=== PATIENT | female | born 2000 | race Hispanic/Latino ===

== ENCOUNTER 2024-10-28 19:45 | Emergency (ER) | payer BC, MEDICAID ==
[~2024-10-28] VITALS: Ht 162.6 cm; Wt 86.2 kg
[2024-10-28 20:25] LABS: HCG,QUALITATIVE URINE NEGATIVE (NEGATIVE)
[2024-10-28 20:29] LABS: APPEARANCE,URINE CLEAR (CLEAR); BILIRUBIN,URINE NEGATIVE (NEGATIVE); COLOR,URINE LIGHT-YELLOW (YELLOW); GLUCOSE, URINE (UA) NEGATIVE (NEGATIVE); KETONES,URINE NEGATIVE (NEGATIVE); LEUKOCYTE ESTERASE ,URINE 25 Leu/uL (NEGATIVE); NITRATE,URINE NEGATIVE (NEGATIVE); OCCULT BLOOD,URINE NEGATIVE (NEGATIVE); PH,URINE 6.5 (5.0-8.0); PROTEIN,URINE NEGATIVE (NEGATIVE); UROBILINOGEN,URINE 0.2 mg/dL (0.2-1.0)
[2024-10-28 20:31] LABS: BACTERIA,URINE RARE /HPF (None Seen); MUCUS,URINE RARE LPF (None Seen); SQUAMOUS EPITHELIAL CELL,UR MOD /HPF (0-2)
[2024-10-28] MEDS ORDERED: CEPH500C2 PO (20:36)
--- NOTE | 2024-10-28 20:36 | ERN ---
General Chief Complaint: Urinary Frequency Stated Complaint: TROUBLE URINATING Time Seen by MD: 19:49 History of Present Illness Initial Comments 24-year-old female otherwise healthy presents for urgency and dysuria for about two weeks. Occasionally she has been having lower back pain. No fevers vomiting vaginal bleeding vaginal discharge or risk of STI. LMP was about a month ago. No medical or surgical history. She had a vaginal delivery six months ago without complications. Allergies: Coded Allergies: No Known Allergies (Unverified Allergy, Unknown, 10/28/24) Home Meds Active Scripts Cephalexin (Cephalexin) 500 Mg Capsule, 1 CAP PO TID for 5 Days, #10 CAP 0 Refills Prov:SAMEERA ACHARYA DO 10/28/24 Past Medical History Past Medical History: No Pertinent History Past Surgical History: None Female( History) LMP: Sep 23, 2024 ROS Dictation CONSTITUTIONAL: No chills, no fever, no weakness, no diaphoresis, no malaise. HEAD/FACE: No signs of trauma. EENT: No eye pain, no blurred vision, no tearing, no double vision, no ear pain, no ear discharge, no nose pain, no nasal congestion, no throat pain, no throat swelling, no mouth pain. RESPIRATORY: No cough, no orthopnea, no SOB, no stridor, no wheezing. CARDIOVASCULAR: No chest pain, no edema, no palpitations, no syncope. GASTROINTESTINAL/ABDOMINAL: No abdominal pain, no constipation, no diarrhea, no nausea, no vomiting. GENITOURINARY: Urgency and dysuria MUSCULOSKELETAL: No back pain, no gout, no joint pain, no joint swelling, no muscle pain, no muscle stiffness, no neck pain. INTEGUMENTARY: No change in color, no change in hair/nails, no dryness, no lesion, no lumps, no rash. NEUROLOGICAL/PSYCH: No anxiety, not depressed, no emotional problem, no headache, no numbness, no pre-existing deficit, no history of seizures, no tremors, no weakness. HEMATOLOGIC/LYMPHATIC: Not anemic, no history of blood clots, no apparent bleeding, no bruising, glands not swollen. All Systems Negative, Except as Noted. Physical Exam Physical Exam Dictation VITAL SIGNS: Reviewed. GENERAL APPEARANCE: Alert, oriented x3, no acute distress, obese. HEAD AND FACE: Non-traumatic. EYES: PERRL, pink conjunctivas, eyelid no trauma, anterior chamber clear. EARS: Pinnas intact and no signs of trauma or erythema. Ear canals clear and no discharge. TMs no erythema. NOSE: No discharge, no bleeding. OROPHARYNX: Mouth normal, teeth no caries, tongue pink. Pharynx clear, no erythema. Tonsils no exudates, no abscesses noted. Mucous membrane moist. NECK: Supple, non-tender, no thyromegaly, no masses, no JVD, no bruits. BREAST: Deferred. CHEST: No tenderness, no crepitus, no paradoxical movement, no retractions. LUNGS: Clear, well-ventilated, symmetric, no rales, no wheezing, no rhonchi, no stridor, good breath sounds bilaterally. HEART: Regular rate, regular rhythm, no murmur, no gallops. VASCULAR: No peripheral edema. ABDOMEN: Soft, positive bowel sounds, nondistended, no guarding, nontender, no rebound, no masses no hepatomegaly, no splenomegaly, no Traylor's sign, no hernias. RECTAL: Deferred. GENITAL: Deferred. NEUROLOGICAL: Normal speech, gross motor function intact, gross sensory function intact. MUSCULOSKELETAL: Neck nontender, full range of motion, back nontender, full range of motion. EXTREMITIES: Nontender, full range of motion. SKIN: Color pink, dry, no turgor, no rash, no lacerations, no abrasions, no contusions. LYMPHATICS: Deferred. Results Laboratory and Microbiology Lab and Micro Result Laboratory Tests Test 10/28/24 19:54 Urine Color LIGHT-YELLOW (YELLOW) Urine Appearance CLEAR (CLEAR) Urine pH 6.5 (5.0-8.0) Urine Specific [place] 1.027 (1.001-1.031) Urine Protein NEGATIVE mg/dL (NEGATIVE) Urine Glucose (UA) NEGATIVE mg/dL (NEGATIVE) Urine Ketones NEGATIVE mg/dL (NEGATIVE) Urine Occult Blood NEGATIVE (NEGATIVE) Urine Nitrate NEGATIVE (NEGATIVE) Urine Bilirubin NEGATIVE mg/dL (NEGATIVE) Urine Urobilinogen 0.2 mg/dL (0.2-1.0) Urine Leukocyte Esterase 25 Les/uL (NEGATIVE) H Urine RBC 2-5 /HPF (0-1) H Urine WBC 2-5 /HPF (0-1) H Urine Squamous Epithelial Cells MOD /HPF (0-2) Urine Bacteria RARE /HPF (None Seen) Urine HCG, Qualitative NEGATIVE (NEGATIVE) MDM CC: Urgency and dysuria Historian: Patient Comorbidities: Obesity Limitations by social determinants of health: None Differential diagnosis, UTI, pyelonephritis, STI, other. Urinalysis does show leuk esterase and some white blood cells consistent with UTI. This is consistent with her symptoms. There is no signs of SIRS or sepsis. The vital signs are stable. She is nontoxic in appearance. Given a dose of IM Rocephin here in the ER, we will discharge with cephalexin and recommend PCP follow up. ED Course Orders Procedure Category Date Status Time Urinalysis LAB 10/28/24 Complete W/Microscopic 19:57 ,Urine Test LAB 10/28/24 Complete 19:57 Ceftriaxone 1g Vial PHA 10/28/24 Complete (Rocephine 1g Inj) 21:00 Current Medications Medications (Trade) Dose Ordered Sig/Lupe Route PRN Reason Start Time Stop Time Status Last Admin Dose Admin Ceftriaxone Sodium (ROCEphine 1G INJ) 1 gm ONCE ONCE IM 10/28/24 21:00 10/28/24 20:42 DC Vital Signs Date Time Temp Pulse Resp B/P (MAP) Pulse Ox O2 Delivery O2 Flow Rate FiO2 10/28/24 20:40 98.2 90 18 131/83 98 Room Air* 0 21 10/28/24 19:48 99.3 96 18 137/84 98 Room Air DX & DISP Disposition: Discharge Departure Impression: Primary Impression: UTI (urinary tract infection) Condition: Stable Scripts Cephalexin (Cephalexin) 500 Mg Capsule 1 CAP PO TID for 5 Days, #10 CAP 0 Refills Prov: SAMEERA ACHARYA DO 10/28/24 Additional Instructions: You have a urinary tract infection based on your urinalysis. Your test was negative. You received a dose of antibiotics (Rocephin) here in the emergency department. I have prescribed cephalexin, which is an antibiotic. Please take the full course of antibiotics as prescribed. You can take [id number] Tylenol or ibuprofen as needed for pain. You can also try [id number] AZO for urinary discomfort. As we discussed, please follow up with your OBGYN physician for further treatment and evaluation next week. Return to the emergency department as needed. Referrals: SELF,REFERRAL (PCP) SAMEERA ACHARYA DO Oct 28, 2024 20:36
[2024-10-28 20:40] VITALS: BP 131/83; PULSE 90; RESP 18; TEMP 98.3; O2SAT 98
[2024-10-28] MEDS ORDERED: cefTRIAXone 1G VIAL IM ONE (21:00)
== END 2024-10-28 20:42 | disposition home or self-care (01) ==
LOC: EDH 19:45
DX: N39.0 Urinary tract infection, site not specified (principal); E66.9 Obesity, unspecified; Z79.899 Other long term (current) drug therapy
CPT/HCPCS: 81001; 81025; 99283

== ENCOUNTER 2024-11-15 09:15 | Emergency (ER) | payer BC, MEDICAID ==
[~2024-11-15] VITALS: Ht 162.6 cm; Wt 84.0 kg
[~2024-11-15 09:15] MED LIST: CEPH500C2 PO
--- NOTE | 2024-11-15 09:39 | ERN ---
ED Note History of Present Illness Stated Complaint: PELVIC PAIN Chief Complaint: Pelvic Pain Time Seen by MD: 09:17 Dictation: 24-year-old female presented to the ER complaining of left lower abdominal pain, left costovertebral angle pain, left groin pain. Also stated that she had been seen at this facility recently last month for similar pain, no imaging was performed the patient states. Also reports that pain sometimes get worse with intercourse. Allergies: Coded Allergies: No Known Allergies (Unverified Allergy, Unknown, 10/28/24) Home Meds Active Scripts Cephalexin (Cephalexin) 500 Mg Capsule, 1 CAP PO TID for 5 Days, #10 CAP 0 Refills Prov:SAMEERA ACHARYA DO 10/28/24 Past Medical History Past Medical History: No Pertinent History Additional Past Medical Hx: DENIES PMHX Surgical History: None LMP: Nov 08, 2024 Review of System Dictation NEGATIVE EXCEPT PER HPI Constitutional: Negative for fever,chills, and weight loss Eyes: Negative for injury, pain,redness, and discharge ENT: Negative for injury,pain or swelling Cardiovascular: denies chest pain, palpitations, and edema Respiratory: Negative for shortness of breath, cough, and wheezing, Abdomen/GI: Left lower abdominal pain. Denies nausea or vomiting. Back: Negative for injury and pain : Negative for injury, bleeding and discharge, left CVA pain MS/Extremity: Negative for injury and deformity Skin: Negative for rash, and discoloration Neuro: Negative for headache, weakness, numbness, tingling, and seizure Psych: Negative for suicide ideation, homicidal ideation, and hallucinations Initial Vital Sign VS Vital Signs Date Time Temp Pulse Resp B/P (MAP) Pulse Ox O2 Delivery O2 Flow Rate FiO2 11/15/24 09:17 97.7 82 16 123/84 100 Room Air 0 11/15/24 09:22 21 Physical Exam Dictation General: awake, alert, NAD Head/Face: Normocephalic, atraumatic Eyes: PERRL, EOMI, vision at baseline ENT: oral cavity clear, TMs clear, no signs of infection Neck: Trachea midline, supple, no nuchal rigidity Cardiovascular: RRR, normal S1/S2, No MRGs, no JVD Respiratory: CTAB, no respiratory distress, No rales or wheezes Abdomen: Soft , mild tender in the left lower abdomen Skin: Warm, dry, normal turgor, no rash MS/Extremity: Pulses equal, no cyanosis, neurovascular intact, FROM Neuro: COAx4, GCS 15, strength 5/5, CN 2-12 intact, normal cerebellar exam, normal gait, Psych: Normal behavior, mood, and affect normal Results (Laboratory/Radiology) Laboratory/Radiology Laboratory Tests Test 11/15/24 09:45 11/15/24 10:33 White Blood Count 5.8 K/uL (4.8-10.8) Red Blood Count 4.88 MIL/uL (4.00-5.50) Hemoglobin 14.0 g/dL (12.0-16.0) Hematocrit 42.1 % (36-48) Mean Corpuscular Volume 86.3 fL (79-99) Mean Corpuscular Hemoglobin 28.7 pg (27.0-33.0) Mean Corpuscular Hemoglobin Concent 33.3 g/dL (32.0-36.0) Red Cell Distribution Width 12.9 % (11.0-15.5) Platelet Count 288 K/uL (130-400) Mean Platelet Volume 9.7 fL (7.5-10.5) Immature Granulocyte % (Auto) 0.2 % (0-1) Neutrophils (%) (Auto) 56.9 % (40.0-77.0) Lymphocytes (%) (Auto) 32.6 % (21.0-51.0) Monocytes (%) (Auto) 7.5 % (3.0-13.0) Eosinophils (%) (Auto) 2.6 % (0.0-8.0) Basophils (%) (Auto) 0.2 % (0.0-5.0) Neutrophils # (Auto) 3.3 K/uL (1.8-7.7) Lymphocytes # (Auto) 1.9 K/uL (1.0-4.8) Monocytes # (Auto) 0.4 K/uL (0.1-1.0) Eosinophils # (Auto) 0.15 K/uL (0.00-0.70) Basophils # (Auto) 0.01 K/uL (0.00-0.20) Absolute Immature Granulocyte (auto 0.01 K/uL (0-1) Nucleated Red Blood Cells 0.0 % (0.0-0.19) Sodium Level 142 mmol/L (136-145) Potassium Level 4.1 mmol/L (3.5-5.1) Chloride Level 107 mmol/L (101-111) Carbon Dioxide Level 28 mmol/L (21-32) Blood Urea Nitrogen 16 mg/dL (7-18) Creatinine 0.4 mg/dL (0.5-1.0) L Glomerular Filtration Rate Calc 143 mL/min (>90) Random Glucose 96 mg/dL (70-105) Total Calcium 8.5 mg/dL (8.5-10.1) Serum Test, Qualitative NEGATIVE (NEGATIVE) Urine Color LIGHT-YELLOW (YELLOW) Urine Appearance CLEAR (CLEAR) Urine pH 6.0 (5.0-8.0) Urine Specific [place] 1.027 (1.001-1.031) Urine Protein NEGATIVE mg/dL (NEGATIVE) Urine Glucose (UA) NEGATIVE mg/dL (NEGATIVE) Urine Ketones NEGATIVE mg/dL (NEGATIVE) Urine Occult Blood NEGATIVE (NEGATIVE) Urine Nitrate NEGATIVE (NEGATIVE) Urine Bilirubin NEGATIVE mg/dL (NEGATIVE) Urine Urobilinogen 0.2 mg/dL (0.2-1.0) Urine Leukocyte Esterase NEGATIVE Les/uL ED Course ED Course Orders Procedure Category Date Status Time Testing, LAB 11/15/24 Complete Serum Hcg 09:31 Cbc With Differential LAB 11/15/24 Complete 09: Basic Metabolic Panel LAB 11/15/24 Complete 09:31 Urinalysis Profile LAB 11/15/24 Complete 09:31 Ct Abdomen/Pelvis W/O CT 11/15/24 Resulted Contrast 09:39 Lactulose 20 Gm/30 Ml PHA 11/15/24 In Process Udcup (Constulose 11:30 Current Medications Medications (Trade) Dose Ordered Sig/Lupe Route PRN Reason Start Time Stop Time Status Last Admin Dose Admin Lactulose (Constulose 20gm/ 30ml Udcup) 20 gm ONCE ONCE PO 11/15/24 11:30 11/15/24 11:31 Vital Signs Date Time Temp Pulse Resp B/P (MAP) Pulse Ox O2 Delivery O2 Flow Rate FiO2 11/15/24 11:11 98.1 68 16 114/62 98 Room Air* 0 21 11/15/24 09:22 97.7 82 16 123/84 100 Room Air* 0 21 11/15/24 09:17 97.7 82 16 123/84 100 Room Air 0 Medical Decision Making MDM 24-year-old female presented with abdominal pain, pain localized in the left lower abdomen. Pain in the left CVA angle. MDM: UTI Diverticulitis Ordered: CBC, BNP, UA, test CT imaging abdomen and pelvis without contrast. Imagings was positive only for constipation. Laboratory was within normal limits Patient received 1 dose of lactulose and bowel regimen medication will be sent for her pharmacy of choice. Patient must follow up with her PCP. She was was encouraged to drink at least 3 L of water daily to keep hydrated. DX & DISP Disposition: Discharge Departure Impression: Primary Impression: Constipation Additional Impression: Abdominal pain Condition: Stable Scripts Polyethylene Glycol 3350 (Miralax) 17 Gram Powd.pack 1 PACKET PO DAILY for constipation, #30 PACKET 0 Refills dissolve in water Prov: LOKESH LEE MD 11/15/24 Bisacodyl (Dulcolax) 10 Mg Supp.rect [address] DAILY for constipation for 10 Days, #10 SUPP 0 Refills Prov: LOKESH LEE MD 11/15/24 Docusate Sodium (Colace) 100 Mg Capsule 1 CAP PO BID for 30 Days, #60 CAP 0 Refills Prov: LOKESH LEE MD 11/15/24 Additional Instructions: RETURN TO ER FOR ANY ACUTE OR WORSENING SYMPTOMS. FOLLOW-UP IN 1-2 DAYS WITH PRIMARY PROVIDER FOR RECHECK OF TODAY'S SYMPTOMS. Referrals: SELF,REFERRAL (PCP) Time of Disposition: 11:34 LOKESH LEE MD Nov 15, 2024 09:39
[2024-11-15 09:58] LABS: BASOPHILS # (AUTO) 0.01 K/uL (0.00-0.20); BASOPHILS % (AUTO) 0.2 % (0.0-5.0); EOSINOPHILS # (AUTO) 0.15 K/uL (0.00-0.70); EOSINOPHILS % (AUTO) 2.6 % (0.0-8.0); HEMATOCRIT 42.1 % (36-48); IMMATURE GRANULOCYTE ABSOLUTE 0.01 K/uL (0-1); LYMPHOCYTES # (AUTO) 1.9 K/uL (1.0-4.8); LYMPHOCYTES % (AUTO) 32.6 % (21.0-51.0); MEAN CORPUSCULAR HEMOGLOBIN 28.7 pg (27.0-33.0); MEAN CORPUSCULAR HGB CONC 33.3 g/dL (32.0-36.0); MEAN CORPUSCULAR VOLUME 86.3 fL (79-99); MONOCYTES # (AUTO) 0.4 K/uL (0.1-1.0); MONOCYTES % (AUTO) 7.5 % (3.0-13.0); NEUTROPHILS # (AUTO) 3.3 K/uL (1.8-7.7); NEUTROPHILS % (AUTO) 56.9 % (40.0-77.0); PLATELET COUNT (AUTO) 288 K/uL (130-400); RED BLOOD CELL COUNT(AUTO) 4.88 MIL/uL (4.00-5.50); RED CELL DISTRIBUTION WIDTH 12.9 % (11.0-15.5); WHITE BLOOD COUNT (AUTO) 5.8 K/uL (4.8-10.8)
[2024-11-15 10:03] LABS: CREATININE 0.4 mg/dL (0.5-1.0); POTASSIUM 4.1 mmol/L (3.5-5.1)
[2024-11-15 10:51] LABS: APPEARANCE,URINE CLEAR (CLEAR); BILIRUBIN,URINE NEGATIVE (NEGATIVE); COLOR,URINE LIGHT-YELLOW (YELLOW); GLUCOSE, URINE (UA) NEGATIVE (NEGATIVE); KETONES,URINE NEGATIVE (NEGATIVE); LEUKOCYTE ESTERASE ,URINE NEGATIVE Leu/uL (NEGATIVE); NITRATE,URINE NEGATIVE (NEGATIVE); OCCULT BLOOD,URINE NEGATIVE (NEGATIVE); PROTEIN,URINE NEGATIVE (NEGATIVE); UROBILINOGEN,URINE 0.2 mg/dL (0.2-1.0)
[2024-11-15 10:52] LABS: ADD UA MICROSCOPIC NO
--- NOTE | 2024-11-15 11:21 | HMCIMG ---
CT ABDOMEN/PELVIS W/O CONTRAST CLINICAL HISTORY: left lower abd pain , left cva pain COMPARISON: None TECHNIQUE: Sequential axial images of abdomen and pelvis without contrast and with sagittal and coronal reconstructions. CT was performed with one or more of the following dose reduction techniques: automated exposure control, adjustment of the mA and/or kV according to patient size, or use of iterative reconstruction technique FINDINGS: Lung bases are clear. Liver and spleen are unremarkable. The gallbladder pancreas and adrenal glands are unremarkable. The right kidney and bladder are unremarkable. There is a punctate nonobstructive left renal calculus. There is no free air or free fluid. This amount of fecal material in the colon with no identified bowel obstruction. The appendix is unremarkable. Uterus appears within normal limits. The bony structures are unremarkable. IMPRESSION: Constipation. Punctate nonobstructive left renal calculus.
[2024-11-15] MEDS ORDERED: BISA10SU61 PR (11:33)
[2024-11-15] MEDS ORDERED: POLY17PO4 PO (11:33)
[2024-11-15] MEDS ORDERED: DOCU-116 PO (11:33)
[2024-11-15] MEDS: LACTULOSE 20 GM/30 ML UDCUP PO ONE (11:35)
[2024-11-15 12:13] VITALS: BP 108/64; PULSE 72; RESP 16; TEMP 98.1; O2SAT 98
== END 2024-11-15 12:15 | disposition home or self-care (01) ==
LOC: EDH 09:15
DX: K59.00 Constipation, unspecified (principal); R10.32 Left lower quadrant pain
CPT/HCPCS: 36415; 74176; 80048; 81003; 84703; 85025; 99284

== ENCOUNTER 2024-12-21 08:28 | Emergency (ER) | payer BC, MEDICAID ==
[~2024-12-21] VITALS: Ht 162.6 cm; Wt 90.7 kg
[~2024-12-21 08:28] MED LIST changes: +BISA10SU61 PR; +DOCU-116 PO; +POLY17PO4 PO
--- NOTE | 2024-12-21 09:00 | NUR ---
ADVISED OF URINE SPECIMEN FOR UA. STATES "I CANT RIGHT NOW BECAUSE I NEED FLUIDS."
[2024-12-21] MEDS: MAGNESIUM CITRATE 296 ML SOLUTION PO ONE (09:02)
[2024-12-21] MEDS: LACTULOSE 20 GM/30 ML UDCUP PO ONE (09:02)
[2024-12-21 09:37] LABS: BASOPHILS # (AUTO) 0.01 K/uL (0.00-0.20); BASOPHILS % (AUTO) 0.1 % (0.0-5.0); EOSINOPHILS # (AUTO) 0.15 K/uL (0.00-0.70); EOSINOPHILS % (AUTO) 1.9 % (0.0-8.0); HEMATOCRIT 41.1 % (36-48); IMMATURE GRANULOCYTE ABSOLUTE 0.02 K/uL (0-1); LYMPHOCYTES % (AUTO) 24.3 % (21.0-51.0); MEAN CORPUSCULAR HEMOGLOBIN 29.3 pg (27.0-33.0); MEAN CORPUSCULAR HGB CONC 33.8 g/dL (32.0-36.0); MEAN CORPUSCULAR VOLUME 86.7 fL (79-99); MONOCYTES # (AUTO) 0.5 K/uL (0.1-1.0); MONOCYTES % (AUTO) 5.7 % (3.0-13.0); NEUTROPHILS # (AUTO) 5.4 K/uL (1.8-7.7); NEUTROPHILS % (AUTO) 67.8 % (40.0-77.0); PLATELET COUNT (AUTO) 246 K/uL (130-400); RED BLOOD CELL COUNT(AUTO) 4.74 MIL/uL (4.00-5.50)
--- NOTE | 2024-12-21 09:37 | NUR ---
PATIENT TOILETED. STATES HAD X1 SMALL BM.
[2024-12-21 09:43] LABS: CREATININE 0.5 mg/dL (0.5-1.0); POTASSIUM 3.5 mmol/L (3.5-5.1)
[2024-12-21 09:51] LABS: HCG,QUALITATIVE URINE NEGATIVE (NEGATIVE)
[2024-12-21 10:08] LABS: BACTERIA,URINE MOD /HPF (None Seen); BILIRUBIN,URINE NEGATIVE (NEGATIVE); COLOR,URINE LIGHT-YELLOW (YELLOW); GLUCOSE, URINE (UA) NEGATIVE (NEGATIVE); KETONES,URINE NEGATIVE (NEGATIVE); LEUKOCYTE ESTERASE ,URINE NEGATIVE Leu/uL (NEGATIVE); MUCUS,URINE RARE LPF (None Seen); NITRATE,URINE NEGATIVE (NEGATIVE); OCCULT BLOOD,URINE NEGATIVE (NEGATIVE); PH,URINE 6.5 (5.0-8.0); PROTEIN,URINE NEGATIVE (NEGATIVE); SQUAMOUS EPITHELIAL CELL,UR FEW /HPF (0-2); UROBILINOGEN,URINE 0.2 mg/dL (0.2-1.0); WBC,URINE 0-1 /HPF (0-1)
[2024-12-21 10:10] LABS: APPEARANCE,URINE HAZY (CLEAR)
[2024-12-21] MEDS ORDERED: LACT10SO85 PO (10:51)
--- NOTE | 2024-12-21 10:51 | ERN ---
General Chief Complaint: Abdominal Pain Stated Complaint: ABD PAIN Time Seen by MD: 08:31 Source: patient History of Present Illness Initial Comments PATIENT IS A 24-YEAR-OLD FEMALE COMING IN TO BE EVALUATED FOR LOWER ABDOMINAL DISCOMFORT. PATIENT STATES THAT THIS IS THE 3RD VISIT SHE WAS SEEN BEFORE PRESCRIBED MEDICATION FOR CONSTIPATION BUT STATES HE HAS NOT DONE IT. SHE HAS NOT FOLLOWED UP WITH THE PCP AND STATES HE IS PENDING FOR INSURANCE TO KICK IN. Allergies: Coded Allergies: No Known Allergies (Unverified Allergy, Unknown, 10/28/24) Home Meds Active Scripts Polyethylene Glycol 3350 (Miralax) 17 Gram Powd.pack, 1 PACKET PO DAILY for constipation, #30 PACKET 0 Refills dissolve in water Prov:LOKESH LEE MD 11/15/24 Bisacodyl (Dulcolax) 10 Mg Supp.rect, 1 SUPP [place] DAILY for constipation for 10 Days, #10 SUPP 0 Refills Prov:LOKESH LEE MD 11/15/24 Docusate Sodium (Colace) 100 Mg Capsule, 1 CAP PO BID for 30 Days, #60 CAP 0 Refills Prov:LOKESH LEE MD 11/15/24 Cephalexin (Cephalexin) 500 Mg Capsule, 1 CAP PO TID for 5 Days, #10 CAP 0 Refills Prov:SAMEERA ACHARYA DO 10/28/24 Past Medical History Past Medical History: Constipation Medical History Other: DENIES PMHX Past Surgical History: Other Surgical History Other: CLEFT LIP REPAIR Female( History) LMP: Dec 06, 2024 : 6 Para: 2 Aborts: 4 ROS Dictation CONSTITUTIONAL: NO CHILLS, NO FEVER, NO WEAKNESS, NO DIAPHORESIS, NO MALAISE. HEAD/FACE: NO SIGNS OF TRAUMA. EENT: NO EYE PAIN, NO BLURRED VISION, NO TEARING, NO DOUBLE VISION, NO EAR PAIN, NO EAR DISCHARGE, NO NOSE PAIN, NO NASAL CONGESTION, NO THROAT PAIN, NO THROAT SWELLING, NO MOUTH PAIN. RESPIRATORY: NO COUGH, NO ORTHOPNEA, NO SOB, NO STRIDOR, NO WHEEZING. CARDIOVASCULAR: NO CHEST PAIN, NO EDEMA, NO PALPITATIONS, NO SYNCOPE. GASTROINTESTINAL/ABDOMINAL: ABDOMINAL PAIN, NO CONSTIPATION, NO DIARRHEA, NO NAUSEA, NO VOMITING. GENITOURINARY: NO ABNORMAL DISCHARGE, NO DYSURIA, NO FREQUENT URINATION, NO HEMATURIA. NO COMPLAINTS OF PAIN IN THE GENITALS. MUSCULOSKELETAL: NO BACK PAIN, NO GOUT, NO JOINT PAIN, NO JOINT SWELLING, NO MUSCLE PAIN, NO MUSCLE STIFFNESS, NO NECK PAIN. INTEGUMENTARY: NO CHANGE IN COLOR, NO CHANGE IN HAIR/NAILS, NO DRYNESS, NO LESION, NO LUMPS, NO RASH. NEUROLOGICAL/PSYCH: NO ANXIETY, NOT DEPRESSED, NO EMOTIONAL PROBLEM, NO HEADACHE, NO NUMBNESS, NO PRE-EXISTING DEFICIT, NO HISTORY OF SEIZURES, NO TREMORS, NO WEAKNESS. HEMATOLOGIC/LYMPHATIC: NOT ANEMIC, NO HISTORY OF BLOOD CLOTS, NO APPARENT BLEEDING, NO BRUISING, GLANDS NOT SWOLLEN. ALL SYSTEMS NEGATIVE, EXCEPT NOTED. Physical Exam Physical Exam Dictation VITAL SIGNS: REVIEWED. GENERAL APPEARANCE: ALERT, ORIENTED X3, NO ACUTE DISTRESS, OBESE. HEAD AND FACE: NON-TRAUMATIC. EYES: PERRL, PINK CONJUNCTIVAS, EYELID NO TRAUMA, ANTERIOR CHAMBER CLEAR. EARS: PINNAS INTACT AND NO SIGNS OF TRAUMA OR ERYTHEMA. EAR CANALS CLEAR AND NO DISCHARGE. TMS NO ERYTHEMA. NOSE: NO DISCHARGE, NO BLEEDING. OROPHARYNX: MOUTH NORMAL, TEETH NO CARIES, TONGUE PINK. PHARYNX CLEAR, NO ERYTHEMA. TONSILS NO EXUDATES, NO ABSCESSES NOTED. MUCOUS MEMBRANE MOIST. NECK: SUPPLE, NON-TENDER, NO THYROMEGALY, NO MASSES, NO JVD, NO BRUITS. BREAST: DEFERRED. CHEST: NO TENDERNESS, NO CREPITUS, NO PARADOXICAL MOVEMENT, NO RETRACTIONS. LUNGS: CLEAR, WELL-VENTILATED, SYMMETRIC, NO RALES, NO WHEEZING, NO RHONCHI, NO STRIDOR, GOOD BREATH SOUNDS BILATERALLY. HEART: REGULAR RATE, REGULAR RHYTHM, NO MURMUR, NO GALLOPS. VASCULAR: NO PERIPHERAL EDEMA. ABDOMEN: SOFT, POSITIVE BOWEL SOUNDS, NONDISTENDED, NO GUARDING, LOWER ABDOMINAL TENDER, NO REBOUND, NO MASSES NO HEPATOMEGALY, NO SPLENOMEGALY, NO POMPA'S SIGN, NO HERNIAS. RECTAL: DEFERRED. GENITAL: DEFERRED. NEUROLOGICAL: NORMAL SPEECH, GROSS MOTOR FUNCTION INTACT, GROSS SENSORY FUNCTION INTACT. MUSCULOSKELETAL: NECK NONTENDER, FULL RANGE OF MOTION, BACK NONTENDER, FULL RANGE OF MOTION. EXTREMITIES: NONTENDER, FULL RANGE OF MOTION. SKIN: COLOR PINK, DRY, NO TURGOR, NO RASH, NO LACERATIONS, NO ABRASIONS, NO CONTUSIONS. LYMPHATICS: DEFERRED. Results Laboratory and Microbiology Lab and Micro Result Laboratory Tests Test 12/21/24 09:31 12/21/24 09:35 White Blood Count 8.0 K/uL (4.8-10.8) Red Blood Count 4.74 MIL/uL (4.00-5.50) Hemoglobin 13.9 g/dL (12.0-16.0) Hematocrit 41.1 % (36-48) Mean Corpuscular Volume 86.7 fL (79-99) Mean Corpuscular Hemoglobin 29.3 pg (27.0-33.0) Mean Corpuscular Hemoglobin Concent 33.8 g/dL (32.0-36.0) Red Cell Distribution Width 13.0 % (11.0-15.5) Platelet Count 246 K/uL (130-400) Mean Platelet Volume 9.4 fL (7.5-10.5) Immature Granulocyte % (Auto) 0.2 % (0-1) Neutrophils (%) (Auto) 67.8 % (40.0-77.0) Lymphocytes (%) (Auto) 24.3 % (21.0-51.0) Monocytes (%) (Auto) 5.7 % (3.0-13.0) Eosinophils (%) (Auto) 1.9 % (0.0-8.0) Basophils (%) (Auto) 0.1 % (0.0-5.0) Neutrophils # (Auto) 5.4 K/uL (1.8-7.7) Lymphocytes # (Auto) 2.0 K/uL (1.0-4.8) Monocytes # (Auto) 0.5 K/uL (0.1-1.0) Eosinophils # (Auto) 0.15 K/uL (0.00-0.70) Basophils # (Auto) 0.01 K/uL (0.00-0.20) Absolute Immature Granulocyte (auto 0.02 K/uL (0-1) Nucleated Red Blood Cells 0.0 % (0.0-0.19) Sodium Level 137 mmol/L (136-145) Potassium Level 3.5 mmol/L (3.5-5.1) Chloride Level 101 mmol/L (101-111) Carbon Dioxide Level 30 mmol/L (21-32) Blood Urea Nitrogen 14 mg/dL (7-18) Creatinine 0.5 mg/dL (0.5-1.0) Glomerular Filtration Rate Calc 136 mL/min (>90) Random Glucose 102 mg/dL (70-105) Total Calcium 8.7 mg/dL (8.5-10.1) Urine Color LIGHT-YELLOW (YELLOW) Urine Appearance HAZY (CLEAR) Urine pH 6.5 (5.0-8.0) Urine Specific [place] 1.019 (1.001-1.031) Urine Protein NEGATIVE mg/dL (NEGATIVE) Urine Glucose (UA) NEGATIVE mg/dL (NEGATIVE) Urine Ketones NEGATIVE mg/dL (NEGATIVE) Urine Occult Blood NEGATIVE (NEGATIVE) Urine Nitrate NEGATIVE (NEGATIVE) Urine Bilirubin NEGATIVE mg/dL (NEGATIVE) Urine Urobilinogen 0.2 mg/dL (0.2-1.0) Urine Leukocyte Esterase NEGATIVE Les/uL Urine RBC None /HPF (0-1) Urine WBC 0-1 /HPF (0-1) Urine Squamous Epithelial Cells FEW /HPF (0-2) Urine Amorphous Crystals (Auto) FEW /LPF (None Seen) Urine Bacteria MOD /HPF (None Seen) Urine HCG, Qualitative NEGATIVE (NEGATIVE) MDM MDM: DIFFERENTIAL DIAGNOSIS: CONSTIPATION, ABDOMINAL PAIN, UTI PATIENT IS A 24-YEAR-OLD FEMALE COMING IN TO BE EVALUATED FOR LOWER ABDOMINAL PAIN. PER PATIENT SHE WAS DIAGNOSED WITH CONSTIPATION BUT STATES HE HAS NOT TAKEN HIS ENEMAS AND SUBSIDED. PATIENT DID RECEIVED LACTULOSE AND MAG CITRATE STATES HE WENT TO THE RESTROOM WERE PAIN IMPROVED SIGNIFICANTLY PATIENT WILL BE DISCHARGED IN STABLE CONDITION WITH A DIAGNOSIS OF CONSTIPATION ED Course Orders Procedure Category Date Status Time Cbc With Differential LAB 12/21/24 Complete 08:34 Urinalysis LAB 12/21/24 Complete W/Microscopic 08:34 ,Urine Test LAB 12/21/24 Complete 08:34 Basic Metabolic Panel LAB 12/21/24 Complete 08:34 Magnesium Citrate PHA 12/21/24 Complete (Magnesium Citrate) 09:00 Lactulose 20 Gm/30 Ml PHA 12/21/24 Complete Udcup (Constulose 09:00 Current Medications Medications (Trade) Dose Ordered Sig/Lupe Route PRN Reason Start Time Stop Time Status Last Admin Dose Admin Lactulose (Constulose 20gm/ 30ml Udcup) 20 gm ONCE ONCE PO 12/21/24 09:00 12/21/24 09:01 DC 12/21/24 09:02 Magnesium Citrate (Magnesium Citrate) 296 ml ONCE ONCE PO 12/21/24 09:00 12/21/24 09:01 DC 12/21/24 09:02 Vital Signs Date Time Temp Pulse Resp B/P (MAP) Pulse Ox O2 Delivery O2 Flow Rate FiO2 12/21/24 09:10 97.9 81 16 130/81 98 Room Air* 0 21 12/21/24 08:30 97.9 90 18 135/109 98 0 DX & DISP Disposition: Discharge Departure Impression: Primary Impression: Constipation Condition: Stable Scripts Lactulose (Lactulose) 10 Gram/15 Ml Solution 30 ML PO BID for constipation, #500 ML 0 Refills Prov: ANA RODRIGUEZ MD 12/21/24 Additional Instructions: FOLLOW-UP WITH PRIMARY CARE PROVIDER IN 1 TO 2 DAYS. TAKE MEDICATIONS DIREC RAFIA HERE IN THE EMERGENCY ROOM. OKAY TO CONTINUE HOME MEDICATIONS UNLESS OTHERWISE DISCUSSED DURING YOUR VISIT IN THE EMERGENCY ROOM TODAY. RETURN TO YOUR NEAREST EMERGENCY ROOM IF SYMPTOMS WORSEN OR IF THERE IS NO IMPROVEMENT. CALL 911 IF YOU NEED IMMEDIATE ASSISTANCE. TAKE TYLENOL [id number] NEEDED AND IF NO CONTRAINDICATIONS ARE PRESENT. INCREASE ORAL HYDRATION. A WOUND CULTURE OR URINE CULTURE WAS ORDERED HERE IN THE EMERGENCY ROOM DEPARTMENT PLEASE FOLLOW-UP WITH PRIMARY CARE PROVIDER AND ADVISE THEM TO GET REPEAT PORTS FROM OUR FACILITY. IF YOU HAD ANY LUIS ANTONIO WRAP/SPLINTS THAT WERE APPLIED HERE, PLEASE DO NOT REMOVE THEM UNTIL YOU SEE YOUR PRIMARY CARE OR SPECIALTY. REFERRALS: Referrals: NONE (PCP) MARY DELGADO MD Time of Disposition: 10:50 ANA RODRIGUEZ MD Dec 21, 2024 10:51
[2024-12-21 11:03] VITALS: BP 126/77; PULSE 77; RESP 14; TEMP 97.9; O2SAT 99
--- NOTE | 2024-12-21 11:03 | NUR ---
PATIENT STATES HAD ANOTHER BM
== END 2024-12-21 11:06 | disposition home or self-care (01) ==
LOC: EDH 08:28
DX: K59.00 Constipation, unspecified (principal); Z98.890 Other specified postprocedural states
CPT/HCPCS: 36415; 80048; 81001; 81025; 85025; 99283

== ENCOUNTER 2024-12-26 09:08 | Emergency (ER) | payer BC, MEDICAID ==
[~2024-12-26] VITALS: Ht 162.6 cm; Wt 90.7 kg
[~2024-12-26 09:08] MED LIST changes: +LACT10SO85 PO
[2024-12-26] MEDS ORDERED: PRED20TA3 PO (09:22)
--- NOTE | 2024-12-26 09:23 | ERN ---
General Chief Complaint: Allergic Reaction Stated Complaint: HIVES Time Seen by MD: 09:14 History of Present Illness Initial Comments 24-year-old female, otherwise healthy, who presents for generalized body rash and itching. She reports she had some itching last night. She woke up this morning she has a few spots of hives on her chest and lower back. No airway compromise. No shortness of breath. She was unsure what the allergy in his but she thinks it may be a dog. Allergies: Coded Allergies: No Known Allergies (Unverified Allergy, Unknown, 10/28/24) Home Meds Active Scripts Lactulose (Lactulose) 10 Gram/15 Ml Solution, 30 ML PO BID for constipation, #500 ML 0 Refills Prov:ANA RODRIGUEZ MD 12/21/24 Polyethylene Glycol 3350 (Miralax) 17 Gram Powd.pack, 1 PACKET PO DAILY for constipation, #30 PACKET 0 Refills dissolve in water Prov:LOKESH LEE MD 11/15/24 Bisacodyl (Dulcolax) 10 Mg Supp.rect, 1 SUPP AR DAILY for constipation for 10 Days, #10 SUPP 0 Refills Prov:LOKESH LEE MD 11/15/24 Docusate Sodium (Colace) 100 Mg Capsule, 1 CAP PO BID for 30 Days, #60 CAP 0 Refills Prov:LOKESH LEE MD 11/15/24 Cephalexin (Cephalexin) 500 Mg Capsule, 1 CAP PO TID for 5 Days, #10 CAP 0 Refills Prov:SAMEERA ACHARYA DO 10/28/24 Past Medical History Past Medical History: No Pertinent History Medical History Other: DENIES PMHX Past Surgical History: None Surgical History Other: CLEFT LIP REPAIR Female( History) LMP: Dec 06, 2024 : 5 Para: 2 Aborts: 3 ROS Dictation CONSTITUTIONAL: No chills, no fever, no weakness, no diaphoresis, no malaise. HEAD/FACE: No signs of trauma. EENT: No eye pain, no blurred vision, no tearing, no double vision, no ear pain, no ear discharge, no nose pain, no nasal congestion, no throat pain, no throat swelling, no mouth pain. RESPIRATORY: No cough, no orthopnea, no SOB, no stridor, no wheezing. CARDIOVASCULAR: No chest pain, no edema, no palpitations, no syncope. GASTROINTESTINAL/ABDOMINAL: No abdominal pain, no constipation, no diarrhea, no nausea, no vomiting. GENITOURINARY: No abnormal discharge, no dysuria, no frequent urination, no hematuria. No complaints of pain in the genitals. MUSCULOSKELETAL: No back pain, no gout, no joint pain, no joint swelling, no muscle pain, no muscle stiffness, no neck pain. INTEGUMENTARY: Rash itching NEUROLOGICAL/PSYCH: No anxiety, not depressed, no emotional problem, no headache, no numbness, no pre-existing deficit, no history of seizures, no tremors, no weakness. HEMATOLOGIC/LYMPHATIC: Not anemic, no history of blood clots, no apparent bleeding, no bruising, glands not swollen. All Systems Negative, Except as Noted. Physical Exam Physical Exam Dictation VITAL SIGNS: Reviewed. GENERAL APPEARANCE: Alert, oriented x3, no acute distress, obese. HEAD AND FACE: Non-traumatic. EYES: PERRL, pink conjunctivas, eyelid no trauma, anterior chamber clear. EARS: Pinnas intact and no signs of trauma or erythema. Ear canals clear and no discharge. TMs no erythema. NOSE: No discharge, no bleeding. OROPHARYNX: Mouth normal, teeth no caries, tongue pink. Pharynx clear, no erythema. Tonsils no exudates, no abscesses noted. Mucous membrane moist. NECK: Supple, non-tender, no thyromegaly, no masses, no JVD, no bruits. BREAST: Deferred. CHEST: No tenderness, no crepitus, no paradoxical movement, no retractions. LUNGS: Clear, well-ventilated, symmetric, no rales, no wheezing, no rhonchi, no stridor, good breath sounds bilaterally. HEART: Regular rate, regular rhythm, no murmur, no gallops. VASCULAR: No peripheral edema. ABDOMEN: Soft, positive bowel sounds, nondistended, no guarding, nontender, no rebound, no masses no hepatomegaly, no splenomegaly, no Traylor's sign, no hernias. RECTAL: Deferred. GENITAL: Deferred. NEUROLOGICAL: Normal speech, gross motor function intact, gross sensory function intact. MUSCULOSKELETAL: Neck nontender, full range of motion, back nontender, full range of motion. EXTREMITIES: Nontender, full range of motion. SKIN: Mild hives LYMPHATICS: Deferred. MDM CC: Body itching allergic type symptoms Historian: Patient Comorbidities: None Limitations by social determinants of health: None Differential diagnosis: Hives, body rash, allergic reaction. No signs of liver failure. No signs of anaphylaxis. Vital signs are stable Patient appears to have an allergy based on clinical exam. No indication for labs or studies. Treatment in ED: IM Solu-Medrol Plan: We will DC with a prescription for prednisone, recommend [id number] Zyrtec and PCP follow up. ED Course Vital Signs Date Time Temp Pulse Resp B/P (MAP) Pulse Ox O2 Delivery O2 Flow Rate FiO2 12/26/24 09:10 97.9 89 18 127/83 100 Room Air 0 DX & DISP Disposition: Discharge Departure Impression: Primary Impression: Allergic reaction Condition: Stable Scripts Prednisone (Prednisone) 20 Mg Tablet 1 TAB PO BID for 5 Days, #10 TAB 0 Refills Prov: SAMEERA ACHARYA DO 12/26/24 Additional Instructions: Your symptoms are consistent with the an allergic reaction. You received IM steroids here in the ER. This will reduce inflammation. I have prescribed prednisone, which is an anti-inflammatory steroid. You can take this twice per day for the next 3-5 days as needed. I recommend that you take an antihistamine such as Zyrtec. Take one tab daily. This medication is [id number]. Return to the emergency department if you have any airway swelling, difficulty breathing, or any other concerning symptom. Otherwise, you can follow up with an outpatient. There is an manager php here in [place] named Dr. Castañeda. Referrals: SELF,REFERRAL (PCP) SAMEERA ACHARYA DO Dec 26, 2024 09:23
[2024-12-26] MEDS: Solu-medROL 40MG VIAL IM ONE (09:53)
[2024-12-26 10:06] VITALS: BP 121/73; PULSE 75; RESP 18; TEMP 97.9; O2SAT 98
== END 2024-12-26 10:15 | disposition home or self-care (01) ==
LOC: EDH 09:08
DX: T78.40XA Allergy, unspecified, initial encounter (principal); X58.XXXA Exposure to other specified factors, initial encounter
CPT/HCPCS: 99284; 96372; J2919

== ENCOUNTER 2025-03-21 00:27 | Emergency (ER) | payer BC, MEDICAID ==
[~2025-03-21] VITALS: Ht 162.6 cm; Wt 92.1 kg
[~2025-03-21 00:27] MED LIST changes: +PRED20TA3 PO
--- NOTE | 2025-03-21 00:30 | NUR ---
UA CUP PROVIDED
--- NOTE | 2025-03-21 00:57 | ERN ---
ED Note History of Present Illness Stated Complaint: LEFT FLANK PAIN, VAGINAL DISCHARGE, PAINFUL UA Chief Complaint: Multiple Complaints Time Seen by MD: 00:40 Time Seen by Midlevel: 00:50 Dictation: Ms. Armenta is a 24 year old female with no reported chronic health issues who presented to the Emergency Department this evening for evaluation of dysuria. She reports 12 hours of left flank pain, frequent urination, burning upon urination, labia tenderness, clear vaginal discharge, and left flank pain. She reports history of UTI and STD in the past. She denies fever, chills, shortness of breath, cough, chest pain, palpitations, edema, abdominal pain, nausea, vomiting, hematemesis, constipation, diarrhea, melena, hematochezia, headache, dizziness, or focal weakness/paresthesia. Allergies: Coded Allergies: No Known Allergies (Unverified Allergy, Unknown, 10/28/24) Home Meds Active Scripts Prednisone (Prednisone) 20 Mg Tablet, 1 TAB PO BID for 5 Days, #10 TAB 0 Refills Prov:SAMEERA ACHARYA DO 12/26/24 Lactulose (Lactulose) 10 Gram/15 Ml Solution, 30 ML PO BID for constipation, #500 ML 0 Refills Prov:ANA RODRIGUEZ MD 12/21/24 Polyethylene Glycol 3350 (Miralax) 17 Gram Powd.pack, 1 PACKET PO DAILY for constipation, #30 PACKET 0 Refills dissolve in water Prov:LOKESH LEE MD 11/15/24 Bisacodyl (Dulcolax) 10 Mg Supp.rect, 1 SUPP MA DAILY for constipation for 10 Days, #10 SUPP 0 Refills Prov:LOKESH LEE MD 11/15/24 Docusate Sodium (Colace) 100 Mg Capsule, 1 CAP PO BID for 30 Days, #60 CAP 0 Refills Prov:LOKESH LEE MD 11/15/24 Cephalexin (Cephalexin) 500 Mg Capsule, 1 CAP PO TID for 5 Days, #10 CAP 0 Refills Prov:SAMEERA ACHARYA DO 10/28/24 Past Medical History Past Medical History: No Pertinent History Additional Past Medical Hx: DENIES PMHX Surgical History: None Surgical History Other: CLEFT LIP REPAIR PSYCH History: no pertinent psych hx Social History: Negative LMP: March 04, 2025 : 5 Para: 2 Aborts: 3 RN Note Reviewed/Agreed w/PFSH: Yes Review of System Dictation REVIEW OF SYSTEMS: CONSTITUTIONAL: Patient denies fevers, chills, sweats and weight changes. EYES: Patient denies any visual symptoms. EARS, NOSE, AND THROAT: No difficulties with hearing. No symptoms of rhinitis or sore throat. CARDIOVASCULAR: Patient denies chest pains, palpitations, orthopnea and paroxysmal nocturnal dyspnea. RESPIRATORY: No dyspnea on exertion, no wheezing or cough. GI: No nausea, vomiting, diarrhea, constipation, abdominal pain, hematochezia or melena. : No urinary hesitancy or dribbling. No nocturia. No abnormal urethral discharge. Reports labia tenderness/redness and clear vaginal discharge. Reports frequent urination with burning. Reports left flank pain. MUSCULOSKELETAL: No myalgias or arthralgias. NEUROLOGIC: No chronic headaches, no seizures. Patient denies numbness, tingling or weakness. PSYCHIATRIC: Patient denies problems with mood disturbance. No problems with anxiety. ENDOCRINE: No excessive urination or excessive thirst. DERMATOLOGIC: Patient denies any rashes or skin changes. Initial Vital Sign VS Vital Signs Date Time Temp Pulse Resp B/P (MAP) Pulse Ox O2 Delivery O2 Flow Rate FiO2 03/21/25 00:28 98.1 81 16 132/108 99 Room Air Physical Exam Dictation Vital signs: Reviewed. Afebrile Constitutional: No acute distress. Non-toxic appearing. Head/Face: Normocephalic, atraumatic. Eyes: Periorbital areas with no swelling, redness, or edema. Lids and lashes are normal. Conjunctival injection is absent. Sclera anicteric. Pupils equal, round, reactive to light. ENT: Pinnas intact and no signs of trauma or erythema. Ear canals clear and no discharge. TMs no erythema. No nasal discharge or bleeding noted. Oropharynx with no exudate, redness, swelling, masses, exudates, or evidence of obstruction. Uvula midline. Mucous membranes moist. Neck: Trachea midline, no masses palpated, and no cervical lymphadenopathy. No swelling. Supple, full range of motion. Chest/Axilla: No tenderness, no crepitus, no paradoxical movement, no retractions. Cardiovascular: Regular rate, regular rhythm, no murmur, no gallops. Symmetric pulses. No peripheral edema. Respiratory: Respirations even and unlabored. Lung sounds clear; no wheezes, rales or rhonchi. Room air SpO2 98% Gastrointestinal: Inspection is normal. No distention is appreciated. Bowel sounds are normal. No mass or organomegaly . There is no tenderness. No rebound. No rigidity. No voluntary or involuntary guarding. No Traylor's sign. : Urine cloudy/yellow. Negative CVA tenderness bilaterally. + suprapubic tenderness. Labia with erythema; no open lesions. She has clear odorless vaginal discharge. Neurological: Normal speech, gross motor function intact, gross sensory function intact. No focal weakness/Paresthesia. Musculoskeletal/Extremities: All extremities have full range of motion, no pain or tenderness on palpation. Symmetric pulses. Integumentary: Intact. Skin is normal color, warm and dry. Cap refill less than 2 seconds. Results (Laboratory/Radiology) Laboratory/Radiology Laboratory Tests Test 03/21/25 01:18 Urine Color LIGHT-YELLOW (YELLOW) Urine Appearance TURBID (CLEAR) Urine pH 7.5 (5.0-8.0) Urine Specific [place] 1.021 (1.001-1.031) Urine Protein NEGATIVE mg/dL (NEGATIVE) Urine Glucose (UA) NEGATIVE mg/dL (NEGATIVE) Urine Ketones NEGATIVE mg/dL (NEGATIVE) Urine Occult Blood NEGATIVE (NEGATIVE) Urine Nitrate NEGATIVE (NEGATIVE) Urine Bilirubin NEGATIVE mg/dL (NEGATIVE) Urine Urobilinogen 2.0 mg/dL (0.2-1.0) H Urine Leukocyte Esterase 25 Les/uL (NEGATIVE) H Urine RBC 2-5 /HPF (0-1) H Urine WBC 11-25 /HPF (0-1) H Urine Squamous Epithelial Cells MOD /HPF (0-2) Urine Amorphous Crystals (Auto) MOD /LPF (None Seen) Urine Bacteria RARE /HPF (None Seen) Urine HCG, Qualitative NEGATIVE (NEGATIVE) ED Course ED Course Orders Procedure Category Date Status Time Urinalysis Profile LAB 03/21/25 Complete 00:54 ,Urine Test LAB 03/21/25 Complete 00:54 Culture Urine MEHREEN 03/21/25 In Process 01:35 Chlamydia & Gc Pcr MEHREEN 03/21/25 In Process 01:42 Vital Signs Date Time Temp Pulse Resp B/P (MAP) Pulse Ox O2 Delivery O2 Flow Rate FiO2 03/21/25 00:28 98.1 81 16 132/108 99 Room Air Uneventful ED course. Vital signs remained stable; afebrile and normotensive with room air SpO2 99%. Laboratory findings as noted below. UA turbid/yellow;+ bacteria, leukocyte esterase, and UWBC 11-25. UCX pending. GC/chlamydia results pending. While in the ED she received doses Rocephin and Diflucan. Findings were discussed with patient and all questions were answered Medical Decision Making MDM MDM: Differential diagnosis: UTI, STI, Rationale: Tests considered and ordered secondary to shared decision making include: Lab, UA Previous outside records reviewed: Old ER visits. Risk of complication and/or morbidity or mortality of patient management: None Medications-Per medication reconciliation Need for hospitalization: Patient does not meet criteria for hospitalization. Need for emergency major/minor surgery: No There are no social concerns with this patient. Prescription drug management: Nitrofurantoin, Pyridium Prescriptions will include symptomatic care Patient's prior external medical records from other ER visits were reviewed by me as indicated. Prior testing and results from previous visits were reviewed. Prior tests were taken into account with medical decision making and resource utilization, independent historian/historians were used to obtain complete medical history. I independently interpreted the test that were performed, results were reviewed by me and considered findings on radiology if ordered. Medical management and examination interpretation discussions were had by me with other qualified healthcare professionals as indicated for the patient's care. DX & DISP Disposition: Discharge Departure Impression: Primary Impression: UTI (urinary tract infection) Additional Impression: Vaginal discharge Condition: Stable Scripts Phenazopyridine HCl (Pyridium) 100 Mg Tab 1 TAB PO TID for urinary discomfort for 3 Days, #9 TAB 0 Refills Prov: LUPILLO JIN ASSOCIATE SPA DIRECTOR 03/21/25 Nitrofurantoin Macrocrystal (Nitrofurantoin) 100 Mg Capsule 1 CAP PO BID for 7 Days, #14 CAP 0 Refills Prov: LUPILLO JIN ASSOCIATE SPA DIRECTOR 03/21/25 Additional Instructions: You have been diagnosed with a urinary tract infection, and infection affecting the bladder or urinary tract. You have also been tested for sexually transmitted infections and those results are still pending. Continue antibiotic with nitrofurantoin twice daily take until gone. Drink plenty of fluids to help flush bacteria from your Na tract. Avoid alcohol and caffeine until symptoms. You may use [id number] medications like Tylenol or ibuprofen for discomfort or fever. You will be contacted with your STI test results. Please ensure that we have the correct phone number. Follow up with your primary care provider clinic on Sunday or Sunday abstain sexual activity until your STI test results are available and any infections or fully treated if applicable. If STI results are positive, partners beating testing and treatment as well. Return to the ER if you develop fever, chills, worsening back pain, nausea/vomiting, and new genital sores, severe pelvic pain, or symptoms worsen or do not improve within 48-72 hours. Referrals: IVANA TRUONG JR, MD (PCP) Time of Disposition: 02:04 LUPILLO JIN NP Mar 21, 2025 00:57
[2025-03-21 01:33] LABS: APPEARANCE,URINE TURBID (CLEAR); BILIRUBIN,URINE NEGATIVE (NEGATIVE); COLOR,URINE LIGHT-YELLOW (YELLOW); GLUCOSE, URINE (UA) NEGATIVE (NEGATIVE); KETONES,URINE NEGATIVE (NEGATIVE); LEUKOCYTE ESTERASE ,URINE 25 Leu/uL (NEGATIVE); NITRATE,URINE NEGATIVE (NEGATIVE); OCCULT BLOOD,URINE NEGATIVE (NEGATIVE); PH,URINE 7.5 (5.0-8.0); PROTEIN,URINE NEGATIVE (NEGATIVE)
[2025-03-21 01:35] LABS: ADD UA MICROSCOPIC YES; BACTERIA,URINE RARE /HPF (None Seen); MUCUS,URINE RARE LPF (None Seen); SQUAMOUS EPITHELIAL CELL,UR MOD /HPF (0-2)
[2025-03-21 01:36] LABS: HCG,QUALITATIVE URINE NEGATIVE (NEGATIVE)
[2025-03-21] MEDS ORDERED: NITR100C PO (02:01)
[2025-03-21] MEDS ORDERED: PHEN-846 PO (02:01)
[2025-03-21] MEDS: fluCONazole 100 MG TAB PO ONE (02:06)
[2025-03-21] MEDS: cefTRIAXone 1G VIAL IM ONE (02:29)
[2025-03-21] MEDS: ketOROlac 60 MG VIAL (30MG/ML) IM ONE (02:29)
[2025-03-21 02:31] VITALS: BP 140/90; PULSE 82; RESP 18; TEMP 98.3; O2SAT 99
[2025-03-24] MEDS ORDERED: SULF1TAB42 PO (02:32)
== END 2025-03-21 02:35 | disposition home or self-care (01) ==
LOC: EDH 00:27
DX: N39.0 Urinary tract infection, site not specified (principal); N89.8 Other specified noninflammatory disorders of vagina; Z79.52 Long term (current) use of systemic steroids
CPT/HCPCS: 99284; 87086 ×2; 87186; 87491; 87591; 81001; 81025; 96372 ×2; J1885; J0696